=== PATIENT | female | born 1965 | race Caucasian/White ===

== ENCOUNTER 2017-10-22 14:45 | Emergency (ER) | payer OTHER ==
[~2017-10-22] VITALS: Ht 165.1 cm; Wt 72.6 kg
--- NOTE | ~2017-10-22 | EKG ---
[place] [address] [employer] [address] ELECTROCARDIOGRAM REPORT Name: CARLI CARRILLO Room #: DEP Hima#: [id number] Admission: 10/22/17 Attend Phys: Discharge: 10/22/17 Date of : 63 Report #: [id number] THIS REPORT FOR: //name// [facility] ED Test Date: 2017-10-22 Test Time: 14:48:29 Pat Name: CARLI CARRILLO Department: Room: Gender: F [employer]: 12 : 1965 Requested By: Mirlande Garcia Order Number: [id number] MD: Cristi Chandra Measurements Intervals [place] Rate: 70 P: -13 IN: 143 QRS: 20 QRSD: 86 T: 26 QT: 377 QTc: 407 Interpretive Statements Sinus rhythm RSR' in V1 or V2, right VCD No previous ECG available for comparison Electronically Signed On 10-23-2017 7:33:17 CDT by Cristi Chandra [email or web address] <ELECTRONICALLY SIGNED> By: Cristi Chandra MD, [facility] 10/23/17 0733 1448 1448 Cristi Chandra MD, FACC /EPI
[2017-10-22] MEDS ORDERED: PREMARIN1.25 MG PO (14:54)
[2017-10-22] MEDS ORDERED: CELEXA40 MG PO (14:55)
[2017-10-22 15:22] LABS: BASOPHILS 0.8 % (0.0-2.0); EOSINOPHILS 2.7 % (0.0-3.0); HEMOGLOBIN 13.7 gm/dL (12.0-15.0); MCH 32.4 pg (26.0-34.0); MCHC 35.1 g/dL (28.0-37.0); MCV 92.3 fL (80.0-100.0); MONOCYTES 7.6 % (1.0-8.0); POLYS 64.9 % (36.0-66.0); RBC 4.22 mil/uL (4.20-5.00); RDW 12.5 % (10.5-14.5); WBC 7.7 thou/uL (4.0-11.0)
[2017-10-22 15:33] LABS: ANION GAP 9 mmol/L (7-16); BUN 12 mg/dL (7-18); CALCIUM 9.6 mg/dL (8.5-10.1); CHLORIDE 104 mmol/L (98-107); CO2 24 mmol/L (21-32); GLUCOSE 111 mg/dL (74-106); POTASSIUM 4.1 mmol/L (3.5-5.1); SODIUM 137 mmol/L (136-145)
[2017-10-22 15:42] LABS: TROPONIN-I <0.06 ng/mL (<0.06)
[2017-10-22 15:44] LABS: PLATELET COUNT 162 thou/uL (150-400)
[2017-10-22 16:30] VITALS: BP 117/75
== END 2017-10-22 16:31 | disposition home or self-care (01) ==
LOC: ER 14:45
PROVIDERS: Emergency Medicine
DX: T67.5XXA Heat exhaustion, unspecified, initial encounter (principal); Z90.89 Acquired absence of other organs; Z90.710 Acquired absence of both cervix and uterus; Z88.1 Allergy status to other antibiotic agents; Z88.6 Allergy status to analgesic agent; Z88.0 Allergy status to penicillin; Z88.8 Allergy status to other drugs, medicaments and biological substances